=== PATIENT | male | born 1980 | race African-American/Black ===

== ENCOUNTER 2019-09-04 17:15 | Emergency (ER) | payer MEDICAID ==
[~2019-09-04] VITALS: Ht 167.6 cm; Wt 73.0 kg
[2019-09-04] MEDS ORDERED: MORPHINE SULFATE 4 MG/ML CPJ (NOT FOR IM USE) IV STA (18:07)
[2019-09-04] MEDS ORDERED: FAMOTIDINE 20MG/2ML VIAL IV STA (18:07)
[2019-09-04] MEDS ORDERED: SODIUM CHLORIDE 0.9% 1,000 ML IV ONE (18:07)
[2019-09-04] MEDS ORDERED: ONDANSETRON HCL 4MG/2ML INJ IV STA (18:07)
[2019-09-04 18:42] LABS: BASOPHILS % 1.2 % (0.0-2.0); EOSINOPHILS % 0.3 % (0.0-5.0); HEMATOCRIT. 47.7 % (42.0-52.0); HEMOGLOBIN. 16.2 g/dL (14.0-18.0); LYMPHOCYTES % 19.7 % (20.0-50.0); MEAN CORPUSCULAR HEMOGLOBIN 33.3 pg (28.0-32.0); MEAN CORPUSCULAR VOLUME 98.1 fL (80.0-94.0); MEAN PLATELET VOLUME 10.6 fl (7.4-10.4); NEUTROPHILS % 64.8 % (40.0-76.0); PLATELET 186 x1000/uL (130-400); RED BLOOD CELL COUNT 4.86 mill/uL (4.7-6.1); RED CELL DISTRIBUTION WIDTH 13.9 % (11.6-14.6)
[2019-09-04 18:48] LABS: INR 1.2
[2019-09-04 19:02] LABS: CHLORIDE 107 mEq/L (98-107)
[2019-09-04 19:06] LABS: ETHANOL BLOOD < 10 mg/dL
[2019-09-04 20:00] LABS: CLARITY URINE CLOUDY (CLEAR); COLOR URINE YELLOW (YELLOW); KETONES URINE TRACE (NEGATIVE); LEUKOCYTE ESTERASE URINE NEGATIVE (NEGATIVE); NITRITE URINE NEGATIVE (NEGATIVE); OCCULT BLOOD URINE NEGATIVE (NEGATIVE); PH URINE 6.5 (4.5-8.0); PROTEIN URINE 1+ (NEGATIVE); SPECIFIC GRAVITY URINE 1.036 (1.005-1.030)
[2019-09-04 20:15] LABS: *AMPHETAMINES SCREEN URINE NEGATIVE (NEGATIVE); *BARBITURATES SCREEN URINE NEGATIVE (NEGATIVE); CANNABINOID URINE SCREEN PRESUMTIVE POSITIVE (NEGATIVE); METHADONE URINE SCREEN NEGATIVE (NEGATIVE); OPIATES URINE SCREEN PRESUMTIVE POSITIVE (NEGATIVE); PHENCYCLIDINE URINE SCREEN NEGATIVE (NEGATIVE)
[2019-09-04 20:16] LABS: *BENZODIAZEPINES SCREEN URINE NEGATIVE (NEGATIVE); *COCAINE SCREEN URINE NEGATIVE (NEGATIVE)
[2019-09-04] MEDS ORDERED: DICYCLOMINE HCL 10MG/ML 2ML AMP IM ONE (21:15)
[2019-09-04 23:02] VITALS: BP 131/76
== END 2019-09-04 23:05 | disposition home or self-care (01) ==
LOC: ER 17:15
DX: K56.7 Ileus, unspecified (principal); R19.7 Diarrhea, unspecified; R03.0 Elevated blood-pressure reading, without diagnosis of hypertension
CPT/HCPCS: 36415; 74176; 80053; 80305; 80320; 81003; 83690; 85025; 85610; 96361; 96372; 96374; 96375; 99284; J0500; J2270; J2405; J3490; J7030; G0480

== ENCOUNTER 2019-12-30 14:27 | Emergency (ER) | payer MEDICAID ==
[~2019-12-30] VITALS: Ht 167.6 cm; Wt 70.0 kg
[2019-12-30] MEDS ORDERED: CEFTRIAXONE SODIUM 250 MG/VIAL IM ONE (16:30)
[2019-12-30] MEDS ORDERED: AZITHROMYCIN 500 MG TABLET PO ONE (16:30)
[2019-12-30] MEDS ORDERED: IBUPROFEN 600MG TABLET PO ONE (16:30)
[2019-12-30 16:39] VITALS: BP 132/91
[2019-12-30 23:13] LABS: CLARITY URINE CLEAR (CLEAR); COLOR URINE YELLOW (YELLOW); KETONES URINE NEGATIVE (NEGATIVE); LEUKOCYTE ESTERASE URINE NEGATIVE (NEGATIVE); NITRITE URINE NEGATIVE (NEGATIVE); OCCULT BLOOD URINE NEGATIVE (NEGATIVE); PH URINE 6.5 (4.5-8.0); PROTEIN URINE NEGATIVE (NEGATIVE); SPECIFIC GRAVITY URINE 1.019 (1.005-1.030); UROBILINOGEN URINE 0.2 E.U./dL (0.2-1.0)
[2020-01-02 04:07] LABS: NEISSERIA GONORRHOEAE NAA Negative (Negative)
== END 2019-12-31 16:14 | disposition home or self-care (01) ==
LOC: ER 14:27
DX: R30.0 Dysuria (principal); K56.7 Ileus, unspecified; Z20.2 Contact with and (suspected) exposure to infections with a predominantly sexual mode of transmission
CPT/HCPCS: 81003; 87491; 87591; 96372; 99283; J0696

== ENCOUNTER 2020-05-23 08:18 | Emergency (ER) | payer MEDICAID ==
[~2020-05-23] VITALS: Ht 177.8 cm; Wt 73.0 kg
[2020-05-23 08:25] VITALS: BP 144/93
[2020-05-23 09:57] LABS: *AMPHETAMINES SCREEN URINE NEGATIVE (NEGATIVE); *BARBITURATES SCREEN URINE NEGATIVE (NEGATIVE); *BENZODIAZEPINES SCREEN URINE NEGATIVE (NEGATIVE); *COCAINE SCREEN URINE NEGATIVE (NEGATIVE); CANNABINOID URINE SCREEN PRESUMTIVE POSITIVE (NEGATIVE); METHADONE URINE SCREEN NEGATIVE (NEGATIVE); OPIATES URINE SCREEN NEGATIVE (NEGATIVE); PHENCYCLIDINE URINE SCREEN NEGATIVE (NEGATIVE)
== END 2020-05-23 10:40 | disposition home or self-care (01) ==
LOC: ER 08:18
DX: R42 Dizziness and giddiness (principal); F41.9 Anxiety disorder, unspecified; I10 Essential (primary) hypertension
CPT/HCPCS: 71045; 80305; 82962; 93005; 99285

== ENCOUNTER 2020-07-17 15:25 | Emergency (ER) | payer MEDICAID ==
[~2020-07-17] VITALS: Ht 167.6 cm; Wt 71.0 kg
[2020-07-17 16:15] VITALS: BP 115/82
[2020-07-17] MEDS ORDERED: CEFTRIAXONE SODIUM 250 MG/VIAL IM ONE (16:15)
[2020-07-17] MEDS ORDERED: AZITHROMYCIN 500 MG TABLET PO ONE (16:15)
== END 2020-07-17 16:33 | disposition home or self-care (01) ==
LOC: ER 15:25
DX: Z20.2 Contact with and (suspected) exposure to infections with a predominantly sexual mode of transmission (principal); J02.9 Acute pharyngitis, unspecified
CPT/HCPCS: 96372; 99283; J0696

== ENCOUNTER 2020-09-05 03:04 | Emergency (ER) | payer MEDICAID ==
[~2020-09-05] VITALS: Ht 167.6 cm; Wt 71.0 kg
[2020-09-05 03:08] VITALS: BP 135/83
[2020-09-05] MEDS ORDERED: AZITHROMYCIN 500 MG TABLET PO ONE (04:45)
[2020-09-05] MEDS ORDERED: CEFTRIAXONE SODIUM 250 MG/VIAL IM ONE (04:45)
[2020-09-05 05:33] LABS: CLARITY URINE CLEAR (CLEAR); COLOR URINE YELLOW (YELLOW); KETONES URINE NEGATIVE (NEGATIVE); LEUKOCYTE ESTERASE URINE NEGATIVE (NEGATIVE); NITRITE URINE NEGATIVE (NEGATIVE); OCCULT BLOOD URINE NEGATIVE (NEGATIVE); PROTEIN URINE NEGATIVE (NEGATIVE); SPECIFIC GRAVITY URINE 1.022 (1.005-1.030)
[2020-09-07 08:11] LABS: NEISSERIA GONORRHOEAE NAA Negative (Negative)
== END 2020-09-05 05:14 | disposition home or self-care (01) ==
LOC: ER 03:19
DX: Z20.2 Contact with and (suspected) exposure to infections with a predominantly sexual mode of transmission (principal)
CPT/HCPCS: 81003; 87491; 87591; 96372; 99283; J0696

== ENCOUNTER 2025-02-15 15:02 | Emergency (ER) | payer MEDICAID ==
[~2025-02-15] VITALS: Ht 167.6 cm; Wt 77.0 kg
[2025-02-15 15:03] VITALS: O2SAT 99
[2025-02-15 15:06] VITALS: BP 133/89; PULSE 74; RESP 18; TEMP 37.2; O2SAT 98
== END 2025-02-15 17:07 | disposition home or self-care (01) ==
LOC: ER 15:02
DX: E86.0 Dehydration (principal)
CPT/HCPCS: 99281

== ENCOUNTER 2025-10-17 00:13 | Emergency (ER) | payer OTHER ==
[~2025-10-17] VITALS: Ht 162.6 cm; Wt 71.0 kg
[2025-10-17 00:18] VITALS: O2SAT 97
[2025-10-17] MEDS: KETOROLAC 15MG/ML VIAL IM ONE (01:03)
[2025-10-17 01:05] LABS: BASOPHILS % 1.0 % (0.0-2.0); EOSINOPHILS % 3.3 % (0.0-5.0); HEMATOCRIT. 47.1 % (42.0-52.0); HEMOGLOBIN. 15.7 g/dL (14.0-18.0); LYMPHOCYTES % 36.2 % (20.0-50.0); MEAN PLATELET VOLUME 9.7 fl (7.4-10.4); MONOCYTES % 9.5 % (2.0-8.0); NEUTROPHILS % 50.0 % (40.0-76.0); PLATELET 238 x1000/uL (130-400); RED BLOOD CELL COUNT 4.87 mill/uL (4.7-6.1); RED CELL DISTRIBUTION WIDTH 13.4 % (11.6-14.6)
[2025-10-17 01:23] LABS: CREATININE 1.0 mg/dL (0.6-1.3); UREA NITROGEN BLOOD 12 mg/dL (9-23)
[2025-10-17 01:24] LABS: TROPONIN I HIGH SENSITIVITY < 4 ng/L (3.0-53)
[2025-10-17 03:34] LABS: TROPONIN I HIGH SENSITIVITY < 4 ng/L (3.0-53)
[2025-10-17] MEDS: HYDROXYZINE 25MG TABLET PO ONE (03:47)
[2025-10-17] MEDS ORDERED: IBUP-2028 MT (03:54)
[2025-10-17 04:15] VITALS: BP 130/90; PULSE 56; RESP 16; TEMP 36.9; O2SAT 100
== END 2025-10-17 04:12 | disposition home or self-care (01) ==
LOC: ER 00:13
DX: R07.9 Chest pain, unspecified (principal)
CPT/HCPCS: 99285; 71045; 80048; 85025; 85379; 84484; 36415; 93005; 96372; J1885